=== PATIENT | female | born 1990 | race Caucasian/White ===

== ENCOUNTER → 2017-11-25 | Outpatient (CLI) | payer BC ==
--- NOTE | 2017-11-25 09:54 | DIAGNOSTIC IMAGING REPORT ---
GI SERIES W/AIR ROUTINE CLINICAL HISTORY: K44.9dyspepsia. Dysphagia. COMPARISON STUDY: None FLUOROSCOPY TIME: 1.3 minutes FINDINGS: Patient initiated swallowing function well. Esophagus is normal in course and caliber.. Stomach is normal in appearance. Duodenal sweep is unremarkable. Duodenal bulb fills well. IMPRESSION: Normal study The above report was generated using voice recognition software. It may contain grammatical, syntax or spelling errors. Electronically signed by: Raf Bravo M.D. 11/25/2017 9:52 AM Dictated Date/Time: 11/25/2017 9:51 AM
== END | disposition home or self-care (01) ==
LOC: C.RAD 09:13
PROVIDERS: ATTEND Physician Assistant
DX: K29.70 Gastritis, unspecified, without bleeding (principal); K44.9 Diaphragmatic hernia without obstruction or gangrene